=== PATIENT | female | born 1995 | race African-American/Black ===

== ENCOUNTER 2018-02-14 15:32 | Emergency (ER) | payer OTHER ==
[2018-02-14] MEDS ORDERED: ONDANSETRON 4 MG/2 ML VIAL IVPUSH ONE (15:37)
[2018-02-14] MEDS ORDERED: SODIUM CHLORIDE 0.9% 1000 ML INFUS.BAG IV ONE ×2 (15:37→16:23)
[2018-02-14 16:22] VITALS: BP 139/80; PULSE 52; TEMP 98.2; BMI 28.7
[2018-02-14] MEDS ORDERED: METOCLOPRAMIDE HCL INJECTION 10 MG/2 ML VIAL IVPB ONE (16:23)
[2018-02-14] MEDS ORDERED: METOCLOPRAMIDE HCL INJECTION 10 MG/2 ML VIAL ONE (16:47)
[2018-02-14] MEDS ORDERED: ONDANSETRON 4 MG/2 ML VIAL ONE (16:47)
--- NOTE | 2018-02-14 16:58 | PDOC ---
History of Present Illness - General Chief Complaint: Nausea/Vomiting Stated Complaint: VOMITING Time Seen by Provider: 02/14/18 15:36 - History of Present Illness Initial Comments: 02/14/18 16:56 Chief complaint: Nausea vomiting This is a 22-year-old woman with no significant past medical history who has had daily vomiting for the last 3 weeks, Patient endorses up to 10-14 episodes of vomiting and day. Nonbloody nonbilious. She has been to 2 emergency departments was prescribed an anti - nausea medication and saw her primary care doctor on Wednesday. She was advised to follow-up with gastroenterology today but the paralegal legal secretary at the office advised to return to the emergency department. Patient denies any current headaches abdominal pain or diarrhea. She did have some intermittent headaches 3-4 weeks ago No travel no sick contacts no history of similar during this period of time patient has lost some weight Past History - Past Medical History Allergies/Adverse Reactions: Allergies Allergy/AdvReac Type Severity Reaction Status Date / Time peanut Allergy Unknown Verified 02/14/18 15:34 tree nut Allergy Unknown Verified 02/14/18 15:34 FRUIT Allergy Unknown Uncoded 02/14/18 15:34 Home Medications: Ambulatory Orders Famotidine 20 mg PO DAILY PRN 02/14/18 [place] Carbonate [Eskalith -] 600 mg PO BID 02/14/18 Nitrofurantoin Macrocrystal [Nitrofurantoin] 100 mg PO BID 02/14/18 Ondansetron [Zofran -] 4 mg PO TID PRN 02/14/18 Ondansetron [Zofran Odt -] 4 mg SL TID #21 od.tablet 02/14/18 Quetiapine Fumarate [Seroquel] 300 mg PO HS 02/14/18 COPD: No Psychiatric Problems: Yes (BIPOLAR DISORDER, DEPRESSION) - Suicide/Smoking/Psychosocial Hx Smoking History: Never smoked Hx Alcohol Use: No Drug/Substance Use Hx: Yes (MARIJUANA) *Physical Exam - Vital Signs Last Vital Signs Temp Pulse Resp BP Pulse Ox 98.2 F 52 L 16 139/80 100 02/14/18 15:33 02/14/18 15:33 02/14/18 15:33 02/14/18 15:33 02/14/18 15:33 Moderate Sedation - Procedure Monitoring Vital Signs: Procedure Monitoring Vital Signs Temperature 98.2 F 02/14/18 15:33 Pulse Rate 52 L 02/14/18 15:33 Respiratory Rate 16 02/14/18 15:33 Blood Pressure 139/80 02/14/18 15:33 O2 Sat by Pulse Oximetry (%) 100 02/14/18 15:33 ED Treatment Course - LABORATORY CBC & Chemistry Diagram: 02/14/18 17:25 02/14/18 17:25 Medical Decision Making - Medical Decision Making 02/14/18 18:53 22 years old with 3 week history of nausea vomiting several visits to emergency departments Check labs hydrate antiemetics observe and reassess. Reevaluation 6:50 PM patient feels much better asking to drink urinalysis pending We'll by mouth challenge discharge and Zofran patient will follow up with her cupola man tomorrow morning. Findings, need follow-up and strict return instructions discussed patient. *DC/Admit/Observation/Transfer Diagnosis at time of Disposition: Nausea and vomiting Qualifiers: Vomiting type: unspecified Vomiting Intractability: non-intractable Qualified Code(s): R11.2 - Nausea with vomiting, unspecified - Discharge Dispostion Disposition: HOME Condition at time of disposition: Good Decision to Admit order: No - Prescriptions Prescriptions: Ondansetron [Zofran Odt -] 4 mg SL TID #21 od.tablet - Referrals Referrals: Tommy Bentley MD [Staff Physician] - - Patient Instructions Printed Discharge Instructions: DI for Vomiting -- Adult Additional Instructions: Take Zofran as prescribed every 8 hours for the next 3 days. 20 minutes after Zofran began to drink small amounts of water soup water or Gatorade. No solid foods until tomorrow afternoon. Tomorrow morning follow-up with the cupola man or your real time operator. Return to ED for any severe worsening symptoms or for any concerns. - Post Discharge Activity
[2018-02-14 17:36] LABS: EOS % 0.4 % (0-4.5); HEMATOCRIT 35.8 % (32.4-45.2); HEMOGLOBIN 11.4 GM/dl (10.7-15.3); LYMPH % 28.6 % (8-40); MCH 26.5 pg (25.7-33.7); MCHC 31.8 g/dl (32.0-36.0); MEAN CELL VOLUME 83.3 fl (80-96); MONO % 4.3 % (3.8-10.2); NEUT % 64.7 % (42.8-82.8); PLATELET COUNT 515 K/MM3 (134-434); RDW 16.1 % (11.6-15.6); WHITE BLOOD COUNT 10.2 K/mm3 (4.0-10.8)
[2018-02-14 17:49] LABS: ALBUMIN 3.8 g/dl (3.5-5.0); ALK PHOS 74 U/L (32-92); ANION GAP 12 MMOL/L (8-16); BILIRUBIN,TOTAL 0.4 mg/dl (0.2-1.0); BLOOD UREA NITROGEN 13 mg/dl (7-18); CALCIUM 9.5 mg/dl (8.4-10.2); CHLORIDE 103 mmol/L (98-107); CO2 24 mmol/L (22-28); CREATININE 0.9 mg/dl (0.6-1.3); GLUCOSE,RANDOM 80 mg/dl (74-106); POTASSIUM 3.9 mmol/L (3.5-5.1); SGOT/AST 20 U/L (10-42); SGPT/ALT 11 U/L (10-40); SODIUM 139 mmol/L (136-145); TOT PROT 8.1 g/dl (6.4-8.3)
[2018-02-14 18:45] LABS: PH,URINE 6.5 (4.5-8); URINE BILIRUBIN 2+ (NEGATIVE); URINE GLUCOSE (UA) Negative (NEGATIVE); URINE KETONE 4+ (NEGATIVE); URINE NITRITE Negative (NEGATIVE); URINE PROTEIN 1+ (NEGATIVE)
[2018-02-14 19:10] LABS: URINE APPEARANCE Clear; URINE COLOR Yellow; URINE LEUK ESTERASE 3+ (NEGATIVE)
--- NOTE | 2018-02-14 19:57 | PDOC ---
*Physical Exam - Vital Signs Last Vital Signs Temp Pulse Resp BP Pulse Ox 98.2 F 52 L 16 139/80 100 02/14/18 15:33 02/14/18 15:33 02/14/18 15:33 02/14/18 15:33 02/14/18 15:33 - Physical Exam Comments: 02/14/18 19:56 Care received at 1900 Pt presents to ED with recurrent episodes of N/V So far, had normal labs and tolerating PO, only UPT pending at signout UPT neg Pt tolerating PO, clinically well appearing, requests DC home Stable for DC home ED Treatment Course - LABORATORY CBC & Chemistry Diagram: 02/14/18 17:25 02/14/18 17:25 - ADDITIONAL ORDERS Additional order review: Laboratory Results 02/14/18 02/14/18 02/14/18 18:35 18:35 17:25 Sodium Potassium Chloride Carbon Dioxide Anion Gap BUN Creatinine Creat Clearance w eGFR Random Glucose Calcium Total Bilirubin AST ALT Alkaline Phosphatase Total Protein Albumin Lipase 141 Urine Color Yellow Urine Appearance Clear Urine pH 6.5 Ur Specific [place] 1.020 Urine Protein 1+ H Urine Glucose (UA) Negative Urine Ketones 4+ H Urine Blood 1+ H Urine Nitrite Negative Urine Bilirubin 2+ H Urine Urobilinogen 1.0 Ur Leukocyte Esterase 3+ H Urine HCG, Qual Negative 02/14/18 17:25 Sodium 139 Potassium 3.9 Chloride 103 Carbon Dioxide 24 Anion Gap 12 BUN 13 Creatinine 0.9 Creat Clearance w eGFR > 60 Random Glucose 80 Calcium 9.5 Total Bilirubin 0.4 AST 20 ALT 11 Alkaline Phosphatase 74 Total Protein 8.1 Albumin 3.8 Lipase Urine Color Urine Appearance Urine pH Ur Specific [place] Urine Protein Urine Glucose (UA) Urine Ketones Urine Blood Urine Nitrite Urine Bilirubin Urine Urobilinogen Ur Leukocyte Esterase Urine HCG, Qual 02/14/18 17:25 RBC 4.30 MCV 83.3 MCHC 31.8 L RDW 16.1 H MPV 9.0 Neutrophils % 64.7 Lymphocytes % 28.6 Monocytes % 4.3 Eosinophils % 0.4 Basophils % 2.0 - Medications Given in the ED: ED Medications Discontinued Medications Generic Name Dose Route Start Last Admin Trade Name Freq PRN Reason Stop Dose Admin Diphenhydramine HCl 25 mg 02/14/18 16:23 02/14/18 17:25 Benadryl Injection - IVPB 02/14/18 16:24 25 mg ONCE ONE Administration Metoclopramide HCl 10 mg 02/14/18 16:23 02/14/18 17:28 Reglan Injection - IVPB 02/14/18 16:24 10 mg ONCE ONE Administration Ondansetron HCl 4 mg 02/14/18 15:37 02/14/18 17:27 Zofran Injection IVPUSH 02/14/18 15:38 4 mg ONCE ONE Administration Sodium Chloride 1,000 ml 02/14/18 15:37 02/14/18 17:25 Normal Saline - IV 02/14/18 15:38 1,000 ml ONCE ONE Administration Sodium Chloride 2,000 ml 02/14/18 16:23 02/14/18 18:15 Normal Saline - IV 02/14/18 16:24 2,000 ml ONCE ONE Administration *DC/Admit/Observation/Transfer Diagnosis at time of Disposition: Nausea and vomiting Qualifiers: Vomiting type: unspecified Vomiting Intractability: non-intractable Qualified Code(s): R11.2 - Nausea with vomiting, unspecified - Discharge Dispostion Disposition: HOME Condition at time of disposition: Good - Prescriptions Prescriptions: Ondansetron [Zofran Odt -] 4 mg SL TID #21 od.tablet - Referrals Referrals: Tommy Bentley MD [Staff Physician] - - Patient Instructions Printed Discharge Instructions: DI for Vomiting -- Adult Additional Instructions: Take Zofran as prescribed every 8 hours for the next 3 days. 20 minutes after Zofran began to drink small amounts of water soup water or Gatorade. No solid foods until tomorrow afternoon. Tomorrow morning follow-up with the marketing information manager or your tar pot worker. Return to ED for any severe worsening symptoms or for any concerns. - Post Discharge Activity
[2018-02-14 20:17] LABS: EPI CELLS FEW /HPF; URINE BACTERIA 3+ /hpf (NEGATIVE); URINE WBC 20-40 (0-5)
== END 2018-02-14 19:56 | disposition home or self-care (01) ==
LOC: FER 15:32
PROC: 3E0337Z Introduction of Electrolytic and Water Balance Substance into Peripheral Vein, Percutaneous Approach (ICD-10-PCS; principal; 2018-02-14)
PROC: 3E033GC Introduction of Other Therapeutic Substance into Peripheral Vein, Percutaneous Approach (ICD-10-PCS; 2018-02-14)
DX: R11.2 Nausea with vomiting, unspecified (principal); F31.9 Bipolar disorder, unspecified
CPT/HCPCS: 36415; 80053; 80178; 81003; 81015; 83690; 84703; 85025; 99283-25; J7030